=== PATIENT | female | born 1975 | race Caucasian/White ===

== ENCOUNTER → 2018-12-18 | Outpatient (CLI) | payer BC ==
[~2018-12-18] MED LIST: ACET500T68 PO; METO-247 PO; [UNRECOGNIZED DRUG - REMARK]
--- NOTE | 2018-12-18 13:07 | PAIN ---
DATE OF SERVICE: 12/18/2018 INITIAL CONSULTATION FOR PAIN CLINIC CHIEF COMPLAINT: Low back and left lower extremity pain. HISTORY OF PRESENT ILLNESS: This is a 43-year-old female who presents with history of pain in low back and left lower extremity for many years. The patient's pain began about the year 1999, gradually increasing, not a result of any injury or action that she is aware of but eventually had a lumbar laminectomy with eventual lumbar fusion in 2006. The patient had a revision of the surgery with instrumentation and fusion at L5-S1 in 06/2013 and then had an accident where the instrumentation was dislodged and had another surgery in 01/2014 to replace the fusion instrumentation. The patient reports that initially she did well after the surgeries, but at this time, the pain is returning now for about a year and it is most intense across the low back into the posterior gluteus on the left, left posterior thigh, posterior calf, and ankle. The patient reports it is worse with walking, standing, and changing positions. It awakens her from sleep at least 3-4 times a night. It does not affect her bowel or bladder control. It does affect her ability to walk. She is not using any assistive devices, however. The patient has had previous epidural injections, trigger point injections, physical therapy, and chiropractic treatment and exercise, most recently in 2013 and other modalities. The patient reports that everything has only lasted for a few weeks at the most. She has tried hydrocodone as well as tramadol which decreased the pain somewhat but has not had any of these since 2013 as well. The patient rates her disability rating from 0-10, 10 being the worst; 8 with family home responsibilities, recreation, social activity, and sexual behavior; 9 with occupation; and 6 with self-care and life support activities. The patient did have MRI scan of the lumbar spine that is dated 09/2018 with minimal generalized disk bulge at L4-5 and L5-S1, unchanged from 2014 with no signs of central canal or neural foraminal stenosis. Stable postoperative changes of lumbar spine fusion, disk desiccation, and mild disk space narrowing at L4-5 with metallic strut graft at L5-S1. The patient describes the pain as constant, sharp, stabbing, throbbing, shooting with numbness and tingling in the left lower extremity, and radiating as well as a burning sensation in the mid and upper back as well. PAST MEDICAL HISTORY: Significant for hypertension, irregular heart rhythm, tachycardia, thyroid goiter, bradycardia as well, arthritis, and gastroesophageal reflux. PAST SURGICAL HISTORY: Previous surgeries include lumbar surgeries as described, also right kidney stent, previous , and a breast biopsy. CURRENT MEDICATIONS: Include [id number] Tylenol which does decrease the pain significantly, [place] p.r.n., amlodipine, and lisinopril. ALLERGIES: THE PATIENT IS ALLERGIC TO IV CONTRAST DYE. FAMILY HISTORY: Significant for cancers, adenocarcinoma, pancreatic cancer, thyroid disease, and hypertension. SOCIAL HISTORY: The patient drinks alcohol about 1 drink once or twice a month, does not smoke, and does not use any illegal, illicit, or recreational drugs. No other tobacco products. She is and lives with her spouse. She has 3 children living at home. 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 REVIEW OF SYSTEMS: The patient's review of systems is positive for those items mentioned in history of present illness. All systems reviewed and otherwise negative. It is complete, full, and well documented on the patient's chart. PHYSICAL EXAMINATION: VITAL SIGNS: The patient's blood pressure is 140/78, pulse 50, respirations 16, temperature 98.3 degrees Fahrenheit, height is 5 feet 2 inches, and weight is 141 pounds. GENERAL: The patient is awake, alert, oriented, and appropriate. She has a very pleasant demeanor. HEENT: Normocephalic and atraumatic. Extraocular movements are intact and symmetrical. Oral cavity, Mucous membranes are moist and pink. Dentition is intact. NECK: Anterior throat supple without palpable lymphadenopathy noted. Swallow reflex is symmetrical. CHEST: Normal on inspection. Breath sounds are clear to auscultation bilaterally. HEART: S1, S2 clear. No murmurs auscultated. ABDOMEN: Soft, nontender, and nondistended. No palpable organomegaly is noted. No rebound or guarding demonstrated. BACK: Spine grossly in the midline. Normal appearing thoracic kyphosis and cervical lordotic curvature. Some flattening of lumbar lordotic curvature with well-healed surgical scarring noted in the midline. Lumbar paraspinous muscle shows symmetrical on inspection and on palpation shows some moderate tenderness diffusely throughout the upper, middle, and lower distribution of paraspinous muscles, thoracic distribution as well into the superior thoracic with firm and tender musculature bilaterally but without specific atrophy or hypertrophy without asymmetry and without trigger points or radiation of pain. The patient shows increased pain with rotation both laterally as well as extension and forward flexion, [id number] in the low back itself. EXTREMITIES: The patient's lower extremities show deep tendon reflexes at 1+ in the patellar and tendo calcaneus tendons are equal. Motor exam is strong with 5/5 dorsiflexion, extension, quadriceps, and hamstring flexion and are symmetrical as well. Peripheral pulses are 1+ posterior tibia. No peripheral edema is noted. Straight leg raise noted to be negative for reproduction of radicular symptoms bilaterally. [place] and Leon maneuvers are negative bilaterally as well. The patient is able to stand and stand on her toes without significant difficulty or loss of balance. She walks with a normal appearing gait for short distance in the office today, does not appear to favor the right or left lower extremity, and not using any assistive devices. SKIN: The patient's skin shows warm and dry. Good turgor. No edema. No sores, rashes, or bruising throughout. IMPRESSION: 1. This is a 43-year-old female with a long history of low back pain and left lower extremity pain in a radicular fashion, status post lumbar surgery with eventual fusion and instrumentation with redo instrumentation after injury in 2013 with persistent low back and left lower extremity pain. 2. Hypertension. 3. Arthritis. PLAN: Options were discussed with the patient including conservative medical management, physical therapies, and interventional techniques and she would like to start with the most conservative course. We discussed physical therapy and will have orders sent with the patient to take to local physical therapy facility in [place], [place] that the patient is familiar with. The patient was given information regarding spinal cord stimulation, interventional techniques of epidural steroids, as well as facet injections, radiofrequency ablation, etc., and would like to consider these options, but we will try physical therapy first. If not significantly improved, the patient will follow up after physical therapy is completed. EMILY CHAUDHARY MD DR: LANA/betty JOB#: [id number] / [id number]
== END | disposition home or self-care (01) ==
LOC: PNCL 11:08
PROVIDERS: ATTEND Anesthesiology
DX: M54.5 Low back pain (principal); M79.605 Pain in left leg; I10 Essential (primary) hypertension; M19.90 Unspecified osteoarthritis, unspecified site; K21.9 Gastro-esophageal reflux disease without esophagitis; Z96.89 Presence of other specified functional implants; Z87.59 Personal history of other complications of pregnancy, childbirth and the puerperium
CPT/HCPCS: G0463